=== PATIENT | male | born 1985 | race African-American/Black ===

== ENCOUNTER 2016-12-20 21:54 | Emergency (ER) | payer MEDICARE, MEDICAID ==
[~2016-12-20] VITALS: Ht 188 cm; Wt 86.0 kg
[2016-12-20] MEDS ORDERED: IPRATROPIUM BROMIDE (0.02%) 0.5MG/2.5ML NEB HHN STA (22:24)
[2016-12-20] MEDS ORDERED: METHYLPREDNISOLONE SOD SUCC 125 MG/2 ML VIAL IV STA (22:24)
[2016-12-20] MEDS ORDERED: MAGNESIUM 2 G PREMIX 50 ML IV STA (22:24)
[2016-12-20] MEDS ORDERED: ALBUTEROL (0.083%) 2.5MG/3ML NEB HHN STA (22:24)
[2016-12-20] MEDS ORDERED: ALBUTEROL (0.5%) 2.5MG/0.5ML NEB HHN ONE (22:50)
[2016-12-20] MEDS ORDERED: METHYLPREDNISOLONE SOD SUCC 125 MG/2 ML VIAL IM ONE (23:00)
[2016-12-20 23:07] LABS: BASOPHILS % 0.5 % (0.0-2.0); EOSINOPHILS % 10.9 % (0.0-5.0); HEMOGLOBIN. 14.8 g/dL (14.0-18.0); LYMPHOCYTES % 42.8 % (20.0-50.0); MEAN CORPUSCULAR HEMOGLOBIN 30.4 pg (28.0-32.0); MEAN CORPUSCULAR VOLUME 90.4 fL (80.0-94.0); MEAN PLATELET VOLUME 8.1 fl (7.4-10.4); MONOCYTES % 9.5 % (2.0-8.0); NEUTROPHILS % 36.3 % (40.0-76.0); PLATELET 193 x1000/uL (130-400); RED BLOOD CELL COUNT 4.86 mill/uL (4.7-6.1); RED CELL DISTRIBUTION WIDTH 12.7 % (11.6-14.6)
[2016-12-20 23:09] LABS: CHLORIDE 104 mEq/L (98-107)
[2016-12-20 23:13] LABS: CARBON DIOXIDE 28 mEq/L (21-32)
[2016-12-20 23:27] VITALS: BP 144/85
== END 2016-12-20 23:46 | disposition home or self-care (01) ==
LOC: ER 21:54 → CANBEDREQ 12-21 06:04
DX: J45.901 Unspecified asthma with (acute) exacerbation (principal); F12.10 Cannabis abuse, uncomplicated
CPT/HCPCS: 36415; 71010; 80053; 85025; 94640; 96372; 99285; J2930; J7611

== ENCOUNTER 2017-10-01 02:23 | Emergency (ER) | payer MEDICARE, MEDICAID ==
[~2017-10-01] VITALS: Ht 188 cm; Wt 87.0 kg
[2017-10-01] MEDS ORDERED: MAGNESIUM 2 G PREMIX 50 ML IV STA (02:46)
[2017-10-01] MEDS ORDERED: IPRATROPIUM BROMIDE (0.02%) 0.5MG/2.5ML NEB HHN STA (02:46)
[2017-10-01] MEDS ORDERED: METHYLPREDNISOLONE SOD SUCC 125 MG/2 ML VIAL IV STA (02:46)
[2017-10-01] MEDS ORDERED: ALBUTEROL (0.083%) 2.5MG/3ML NEB HHN STA (02:46)
[2017-10-01 04:45] VITALS: BP 142/79
== END 2017-10-01 04:45 | disposition home or self-care (01) ==
LOC: ER 02:23
DX: J45.901 Unspecified asthma with (acute) exacerbation (principal); F12.10 Cannabis abuse, uncomplicated
CPT/HCPCS: 71045; 94644; 96365; 96366; 96375; 99285; J2930; J3475; J7611

== ENCOUNTER 2017-11-07 08:29 | Emergency (ER) | payer MEDICARE, MEDICAID ==
[~2017-11-07] VITALS: Ht 188 cm; Wt 86.0 kg
[2017-11-07] MEDS ORDERED: IPRATROPIUM BROMIDE (0.02%) 0.5MG/2.5ML NEB HHN STA (09:01)
[2017-11-07] MEDS ORDERED: ALBUTEROL (0.083%) 2.5MG/3ML NEB HHN STA (09:01)
[2017-11-07] MEDS ORDERED: PREDNISONE 20MG TABLET PO STA (09:01)
[2017-11-07 12:05] VITALS: BP 121/83
== END 2017-11-07 12:10 | disposition home or self-care (01) ==
LOC: ER 08:29
DX: J45.901 Unspecified asthma with (acute) exacerbation (principal); F12.90 Cannabis use, unspecified, uncomplicated; Z90.89 Acquired absence of other organs
CPT/HCPCS: 94644; 99285; J7512; J7611

== ENCOUNTER 2018-02-23 09:36 | Emergency (ER) | payer MEDICARE, MEDICAID ==
[~2018-02-23] VITALS: Ht 185.4 cm; Wt 86.0 kg
[2018-02-23] MEDS ORDERED: ALBUTEROL (0.083%) 2.5MG/3ML NEB HHN STA (10:43)
[2018-02-23] MEDS ORDERED: PREDNISONE 20MG TABLET PO STA (10:43)
[2018-02-23] MEDS ORDERED: IPRATROPIUM BROMIDE (0.02%) 0.5MG/2.5ML NEB HHN STA (10:43)
[2018-02-23 13:07] VITALS: BP 124/82
== END 2018-02-23 13:08 | disposition home or self-care (01) ==
LOC: ER 09:36
DX: J45.901 Unspecified asthma with (acute) exacerbation (principal); R03.0 Elevated blood-pressure reading, without diagnosis of hypertension; F12.90 Cannabis use, unspecified, uncomplicated
CPT/HCPCS: 93005; 94640; 99283; J7512; J7611

== ENCOUNTER 2018-08-30 13:02 | Emergency (ER) | payer MEDICARE, MEDICAID ==
[~2018-08-30] VITALS: Ht 188 cm; Wt 86.0 kg
[2018-08-30] MEDS ORDERED: ALBUTEROL (0.083%) 2.5MG/3ML NEB HHN STA (14:01)
[2018-08-30] MEDS ORDERED: PREDNISONE 20MG TABLET PO STA (14:01)
[2018-08-30] MEDS ORDERED: IPRATROPIUM BROMIDE (0.02%) 0.5MG/2.5ML NEB HHN STA (14:01)
[2018-08-30] MEDS ORDERED: KETOROLAC 15MG/ML VIAL IV ONE (15:00)
[2018-08-30 17:36] LABS: BASOPHILS % 0.5 % (0.0-2.0); EOSINOPHILS % 3.6 % (0.0-5.0); HEMATOCRIT. 49.3 % (42.0-52.0); HEMOGLOBIN. 16.4 g/dL (14.0-18.0); LYMPHOCYTES % 20.5 % (20.0-50.0); MEAN CORPUSCULAR HEMOGLOBIN 30.8 pg (28.0-32.0); MEAN CORPUSCULAR VOLUME 92.9 fL (80.0-94.0); MEAN PLATELET VOLUME 9.5 fl (7.4-10.4); MONOCYTES % 8.9 % (2.0-8.0); NEUTROPHILS % 66.5 % (40.0-76.0); PLATELET 195 x1000/uL (130-400); RED BLOOD CELL COUNT 5.31 mill/uL (4.7-6.1); RED CELL DISTRIBUTION WIDTH 12.9 % (11.6-14.6)
[2018-08-30 17:43] LABS: CHLORIDE 103 mEq/L (98-107)
[2018-08-30] MEDS ORDERED: ALBUTEROL (0.5%) 2.5MG/0.5ML NEB HHN ONE (17:45)
[2018-08-30] MEDS ORDERED: METHYLPREDNISOLONE SOD SUCC 125 MG/2 ML VIAL IV STA (17:45)
[2018-08-30] MEDS ORDERED: ACETAMINOPHEN 325MG TABLET PO PRN (20:30)
[2018-08-30] MEDS ORDERED: CLONIDINE 0.1MG TABLET PO PRN (20:30)
[2018-08-30] MEDS ORDERED: METHYLPREDNISOLONE SOD SUCC 40 MG/ML VIAL IV SCH (20:30)
[2018-08-30] MEDS ORDERED: LORAZEPAM 0.5MG TABLET PO PRN (20:30)
[2018-08-30] MEDS ORDERED: LORATADINE 10MG TABLET PO SCH (20:30)
[2018-08-30] MEDS ORDERED: DOCUSATE SODIUM 100MG CAPSULE PO PRN (20:30)
[2018-08-30] MEDS ORDERED: ONDANSETRON HCL 4MG/2ML INJ IV PRN (20:30)
[2018-08-30] MEDS ORDERED: IPRATROPIUM/ALBUTEROL 0.5-3(2.5)MG/3ML NEB INH SCH (20:30)
[2018-08-30] MEDS ORDERED: FAMOTIDINE 20MG TABLET PO SCH (21:00)
[2018-08-30 22:02] VITALS: BP 107/70
[2018-08-31] MEDS ORDERED: MONTELUKAST SODIUM 10MG TABLET PO SCH (17:00)
== END 2018-08-30 22:02 | disposition left against medical advice (07) ==
LOC: ER 13:02 → CANBEDREQ 22:44
DX: J45.901 Unspecified asthma with (acute) exacerbation (principal); F12.10 Cannabis abuse, uncomplicated; Z90.49 Acquired absence of other specified parts of digestive tract
CPT/HCPCS: 36415; 71045; 80053; 85025; 93005; 94640; 96374; 99284; J2930; J7611

== ENCOUNTER 2018-09-08 02:29 | Inpatient (IN) | payer MEDICARE, MEDICAID ==
[~2018-09-08] VITALS: Ht 188 cm; Wt 82.6 kg
[2018-09-08] MEDS ORDERED: ONDANSETRON HCL 4MG/2ML INJ IV STA (02:39)
[2018-09-08] MEDS ORDERED: IPRATROPIUM BROMIDE (0.02%) 0.5MG/2.5ML NEB HHN STA (02:39)
[2018-09-08] MEDS ORDERED: SODIUM CHLORIDE 0.9% 1,000 ML IV ONE (02:39)
[2018-09-08] MEDS ORDERED: METHYLPREDNISOLONE SOD SUCC 125 MG/2 ML VIAL IV STA (02:39)
[2018-09-08] MEDS ORDERED: MAGNESIUM 2 G PREMIX 50 ML IV ONE (02:45)
[2018-09-08 03:10] LABS: BASOPHILS % 1.1 % (0.0-2.0); EOSINOPHILS % 6.6 % (0.0-5.0); HEMATOCRIT. 46.2 % (42.0-52.0); HEMOGLOBIN. 15.2 g/dL (14.0-18.0); LYMPHOCYTES % 52.2 % (20.0-50.0); MEAN CORPUSCULAR HEMOGLOBIN 30.4 pg (28.0-32.0); MEAN CORPUSCULAR VOLUME 92.7 fL (80.0-94.0); MEAN PLATELET VOLUME 8.1 fl (7.4-10.4); MONOCYTES % 8.8 % (2.0-8.0); NEUTROPHILS % 31.3 % (40.0-76.0); PLATELET 209 x1000/uL (130-400); RED BLOOD CELL COUNT 4.99 mill/uL (4.7-6.1); RED CELL DISTRIBUTION WIDTH 12.8 % (11.6-14.6)
[2018-09-08] MEDS: ALBUTEROL (0.083%) 2.5MG/3ML NEB HHN SCH ×3 (03:15→03:55)
[2018-09-08 03:17] LABS: CHLORIDE 108 mEq/L (98-107)
[2018-09-08] MEDS ORDERED: HYDRALAZINE 20MG/ML VIAL IV PRN (08:30)
[2018-09-08] MEDS ORDERED: IPRATROPIUM/ALBUTEROL 0.5-3(2.5)MG/3ML NEB INH PRN (08:30)
[2018-09-08] MEDS ORDERED: HYDROCODONE/ACETAMINOPHEN 10/325MG TABLET PO PRN (08:30)
[2018-09-08] MEDS ORDERED: MAGNESIUM/ALUMINUM HYDROXIDE/SIMETHICONE 30ML UDC PO PRN (08:30)
[2018-09-08] MEDS ORDERED: DOCUSATE SODIUM 100MG CAPSULE PO PRN (08:30)
[2018-09-08] MEDS ORDERED: LORAZEPAM 2MG/ML CPJ IV PRN (08:30)
[2018-09-08] MEDS ORDERED: HYDROMORPHONE HCL/PF 2MG/ML CPJ IV PRN (08:30)
[2018-09-08] MEDS ORDERED: DIPHENHYDRAMINE 50MG/ML VIAL IV PRN (08:30)
[2018-09-08] MEDS ORDERED: GUAIFENESIN 200MG/10ML SUGAR FREE UDC PO PRN (08:30)
[2018-09-08] MEDS ORDERED: CLONIDINE 0.1MG TABLET PO PRN (08:30)
[2018-09-08] MEDS ORDERED: ACETAMINOPHEN 325MG TABLET PO PRN (08:30)
[2018-09-08] MEDS ORDERED: ONDANSETRON HCL 4MG/2ML INJ IV PRN (08:30)
[2018-09-08 11:52] VITALS: BP 130/74
[2018-09-08] MEDS: METHYLPREDNISOLONE SOD SUCC 125 MG/2 ML VIAL IV SCH ×3 (13:53→23:32)
[2018-09-08] MEDS: SODIUM CHLORIDE 0.9% INJ 3ML FLUSH IVF SCH ×2 (14:00→21:50)
[2018-09-08] MEDS ORDERED: IPRATROPIUM/ALBUTEROL 0.5-3(2.5)MG/3ML NEB HHN PRN (15:30)
[2018-09-08 16:00] VITALS: BP 116/64
[2018-09-08 16:19] LABS: CREATINE KINASE 231 IU/L (39-308); CREATINE KINASE MB FRACTION 2.1 ng/mL (0.5-3.6)
[2018-09-08] MEDS: MONTELUKAST SODIUM 10MG TABLET PO SCH (17:17)
[2018-09-08] MEDS: LORATADINE 10MG TABLET PO SCH (17:17)
[2018-09-08 20:00] VITALS: BP 126/79
[2018-09-08] MEDS: GUAIFENESIN 600MG ER TABLET PO SCH (20:21)
[2018-09-08] MEDS: FAMOTIDINE 20MG TABLET PO SCH (20:21)
[2018-09-08 23:40] LABS: CREATINE KINASE 230 IU/L (39-308)
[2018-09-08 23:41] LABS: CREATINE KINASE MB FRACTION 1.5 ng/mL (0.5-3.6)
[2018-09-09] VITALS: BP 107/48
[2018-09-09 04:00] VITALS: BP 93/58
[2018-09-09] MEDS: METHYLPREDNISOLONE SOD SUCC 125 MG/2 ML VIAL IV SCH ×2 (05:10→12:53)
[2018-09-09] MEDS: SODIUM CHLORIDE 0.9% INJ 3ML FLUSH IVF SCH ×3 (05:10→20:48)
[2018-09-09 08:00] VITALS: BP 136/83
[2018-09-09] MEDS: GUAIFENESIN 600MG ER TABLET PO SCH ×2 (08:10→20:48)
[2018-09-09] MEDS: FAMOTIDINE 20MG TABLET PO SCH ×2 (08:10→20:48)
[2018-09-09] MEDS: LORATADINE 10MG TABLET PO SCH (08:10)
[2018-09-09 09:23] LABS: HEMATOCRIT. 46.1 % (42.0-52.0); HEMOGLOBIN. 15.5 g/dL (14.0-18.0); MEAN CORPUSCULAR HEMOGLOBIN 30.8 pg (28.0-32.0); MEAN PLATELET VOLUME 8.4 fl (7.4-10.4); PLATELET 218 x1000/uL (130-400); RED BLOOD CELL COUNT 5.01 mill/uL (4.7-6.1); RED CELL DISTRIBUTION WIDTH 12.9 % (11.6-14.6)
[2018-09-09 09:42] LABS: CHLORIDE 103 mEq/L (98-107)
[2018-09-09 09:53] LABS: T4 FREE 1.06 ng/dL (0.76-1.46)
[2018-09-09 12:00] VITALS: BP 126/76
[2018-09-09 15:35] LABS: *AMPHETAMINES SCREEN URINE NEGATIVE (NEGATIVE); *BARBITURATES SCREEN URINE NEGATIVE (NEGATIVE); *BENZODIAZEPINES SCREEN URINE NEGATIVE (NEGATIVE); *COCAINE SCREEN URINE NEGATIVE (NEGATIVE)
[2018-09-09 15:36] LABS: CANNABINOID URINE SCREEN PRESUMTIVE POSITIVE (NEGATIVE); OPIATES URINE SCREEN NEGATIVE (NEGATIVE); PHENCYCLIDINE URINE SCREEN NEGATIVE (NEGATIVE)
[2018-09-09 15:37] LABS: METHADONE URINE SCREEN NEGATIVE (NEGATIVE)
[2018-09-09 16:00] VITALS: BP 132/79
[2018-09-09] MEDS: MONTELUKAST SODIUM 10MG TABLET PO SCH (17:10)
[2018-09-09 20:00] VITALS: BP 120/80
[2018-09-10] VITALS: BP 110/75
[2018-09-10 04:00] VITALS: BP 115/70
[2018-09-10 06:32] LABS: PLATELET ESTIMATE NORMAL
[2018-09-10] MEDS: SODIUM CHLORIDE 0.9% INJ 3ML FLUSH IVF SCH (06:34)
[2018-09-10] MEDS ORDERED: PREDNISONE 20MG TABLET PO SCH (07:15)
[2018-09-10 08:00] VITALS: BP 107/64
[2018-09-10] MEDS: LORATADINE 10MG TABLET PO SCH (08:34)
[2018-09-10] MEDS: GUAIFENESIN 600MG ER TABLET PO SCH (08:34)
[2018-09-10] MEDS: FAMOTIDINE 20MG TABLET PO SCH (08:34)
[2018-09-10 12:00] VITALS: BP 117/75
[2018-09-10 12:36] VITALS: BP 117/75
== END 2018-09-10 13:15 | disposition home or self-care (01) | DRG 189 ==
LOC: ER 02:29 → 5WST 05:48 → EDBEDREQ 06:13 → ENRESERV 10:12 → 5WST 12:23
PROVIDERS: ADMIT Internal Medicine; ATTEND Internal Medicine
DX: J96.00 Acute respiratory failure, unspecified whether with hypoxia or hypercapnia (principal); J45.902 Unspecified asthma with status asthmaticus; J44.9 Chronic obstructive pulmonary disease, unspecified; D72.1 Eosinophilia
CPT/HCPCS: 36415; 71045; 80305; 82550; 82553; 83605; 84439; 84443; 84484; 94640; 96365; 96366; 96375; 99291; J2930; J3475; J7030; J7512; J7611; J7620

== ENCOUNTER 2022-02-13 15:08 | Emergency (ER) | payer MEDICARE, MEDICAID ==
[~2022-02-13] VITALS: Ht 188 cm; Wt 84.0 kg
[2022-02-13 15:24] VITALS: BP 133/91
[2022-02-13] MEDS ORDERED: IBUP-2029 MT (21:42)
[2022-02-13] MEDS ORDERED: CLIN-116 MT (21:42)
[2022-02-13] MEDS ORDERED: CLINDAMYCIN HCL 150MG CAPSULE PO ONE (21:45)
[2022-02-13] MEDS ORDERED: HYDROCODONE/ACETAMINOPHEN 10/325MG TABLET PO ONE (21:45)
== END 2022-02-13 22:26 | disposition home or self-care (01) ==
LOC: ER 15:08
DX: K04.7 Periapical abscess without sinus (principal); K02.9 Dental caries, unspecified; J45.909 Unspecified asthma, uncomplicated; F12.10 Cannabis abuse, uncomplicated
CPT/HCPCS: 99281; 99283